=== PATIENT | male | born 1945 | race Caucasian/White ===

== ENCOUNTER 2025-03-18 00:12 | Emergency (ER) | payer MEDICARE, BC | END 2025-03-18 01:38 | disposition home or self-care (01) | LOC: JP.ED 00:12 | DX: L76.22 Postprocedural hemorrhage of skin and subcutaneous tissue following other procedure (principal); I10 Essential (primary) hypertension; E11.9 Type 2 diabetes mellitus without complications; Z88.1 Allergy status to other antibiotic agents; Z88.8 Allergy status to other drugs, medicaments and biological substances; Z79.84 Long term (current) use of oral hypoglycemic drugs; Z79.899 Other long term (current) drug therapy | CPT/HCPCS: 99282; 99283 ==